=== PATIENT | female | born 1985 | race Caucasian/White ===

== ENCOUNTER 2019-06-08 18:50 | Emergency (ER) | payer SELFPAY ==
[~2019-06-08] VITALS: Ht 162.6 cm; Wt 54.5 kg
--- NOTE | 2019-06-08 19:26 | ED EENT ---
History of Present Illness General Chief Complaint: Dental Problems/Pain Stated Complaint: DENTAL PAIN Nursing Triage Note: Pt amb to triage with c/o dental pain. Pt reports discomfort and swelling to Lt bottom molar and tissue surrounding. Pt reports discomfort began approx x2 days ago. Deneis fever or chills. Source: patient, family Exam Limitations: no limitations History of Present Illness Date Seen by Provider: Jun 08, 2019 Time Seen by Provider: 19:26 Initial Comments 34-year-old female patient presents with complaints of left-sided dental pain 2 days. Patient reports taking Tylenol at home without improvement in symptoms. Pain is worse with palpation and chewing. Patient reports a long history of dental cavities. Patient requests not to be given narcotics if given anything for pain due to a history of drug abuse. Timing/Duration: gradual Location: dental Prearrival Treatment: over the counter meds Modifying Factors: Worse With Other (worse with palpation and chewing) Allergies and Home Medications Allergies Coded Allergies: amoxicillin (Verified Allergy, Severe, blisters in throat, 06/08/19) sulfamethoxazole (Verified Allergy, Severe, blisters in throat, 06/08/19) trimethoprim (Verified Allergy, Severe, blisters in throat, 06/08/19) Home Medications Cephalexin 500 Mg Tablet, 500 MG PO TID Prescribed by: MADDIE NICHOLSON on 06/08/191944 Ibuprofen 800 Mg Tablet, 800 MG PO Q8H PRN for PAIN-MILD Prescribed by: MADDIE NICHOLSON on 06/08/191944 Patient Home Medication List Home Medication List Reviewed: Yes Review of Systems Review of Systems Constitutional: No chills, No dizziness, No fever, No malaise Eyes: No Symptoms Reported Ears: No Symptoms Reported Nose: no symptoms reported Mouth: see HPI, pain, swelling (swelling to the left lower gums) Throat: denies pain, denies swelling, denies hoarse, denies aphonia, denies muffled, denies painful swallowing, denies difficulty with fluids Respiratory: no symptoms reported Cardiovascular: no symptoms reported Gastrointestinal: no symptoms reported Skin: no symptoms reported Neurological: No Symptoms Reported All Other Systems Reviewed Negative Unless Noted: Yes (Negative excepted noted.) Past Gozzjav-Fjpihl-Vajaoo Hx Past Med/Social Hx: Reviewed Nursing Past Med/Soc Hx Patient Social History Alcohol Use: Rarely Uses Number of Drinks Today: 0 Recreational Drug Use: Yes Smoking Status: Current Everyday Smoker Type Used: Cigarettes 2nd Hand Smoke Exposure: Yes Recent Foreign Travel: No Contact w/Someone Who Travel: No Recent Infectious Disease Expo: No Recent Hopitalizations: No Seasonal Allergies Seasonal Allergies: No Past Medical History Surgeries: Yes Orthopedic Respiratory: No Cardiac: No Neurological: No Genitourinary: No Gastrointestinal: No Musculoskeletal: Yes Scoliosis Endocrine: No HEENT: No Cancer: No Integumentary: No Family Medical History Reviewed Nursing Family Hx No Pertinent Family Hx Physical Exam Vital Signs Vital Signs - First Documented 06/08/19 19:03 Temp 36.6 Pulse 73 Resp 16 B/P (MAP) 116/82 (93) Pulse Ox 100 O2 Delivery Room Air Height, Weight, BMI Height: '" Weight: lbs. oz. kg; 20.00 BMI Method: General Appearance: WD/WN, no apparent distress Eyes: bilateral eye normal inspection, bilateral eye PERRL, bilateral eye EOMI Ears: bilateral ear auricle normal, bilateral ear canal normal, bilateral ear TM normal Nose: normal inspection Mouth/Throat: pharynx normal, dental tenderness (left lower dental tenderness with mild swelling to the gums. Multiple dental caries noted throughout the mouth.); No excessive drooling; mandibular swelling (very mild left mandibular swelling without erythema. Tenderness noted.); No maxillary swelling, No uvula swelling, No voice changes Neck: full range of motion, supple, lymphadenopathy (R), lymphadenopathy (L) Cardiovascular: regular rate, rhythm, no murmur Respiratory: lungs clear, normal breath sounds, no respiratory distress, no accessory muscle use Neurologic/Psychiatric: alert, normal mood/affect, oriented x 3 Skin: normal color, warm/dry Progress/Results/Core Measures Results/Orders My Orders Orders - MADDIE NICHOLSON Ketorolac Injection (Toradol Injection) (06/08/19 19:33) Clindamycin Capsule (Cleocin Capsule) (06/08/19 19:45) Medications Given in ED Current Medications Medications Dose Ordered Sig/Torin Route Start Time Stop Time Status Last Admin Dose Admin Clindamycin HCl 450 mg ONCE ONCE PO 06/08/19 19:45 06/08/19 19:46 DC 06/08/19 19:45 450 MG Vital Signs/I&O 06/08/19 19:03 Temp 36.6 Pulse 73 Resp 16 B/P (MAP) 116/82 (93) Pulse Ox 100 O2 Delivery Room Air 2 Blood Pressure Mean: 93 Departure Communication (Admissions) Patient seen and evaluated. Patient given 450 mg of Cleocin by mouth 1 dose and Toradol 60 mg IM 1 dose. Plan for discharge to home. [place] [facility]. Impression Primary Impression: Dental abscess Disposition: HOME, SELF-CARE Condition: Improved Departure-Patient Inst. Decision time for Depature: 19:43 Referrals: NO,LOCAL PHYSICIAN (PCP/Family) Primary Care Physician Patient Instructions: Dental Pain (DC), Tooth Abscess (DC) Add. Discharge Instructions: All discharge instructions reviewed with patient and/or family. Voiced understanding. Medications as instructed. Tylenol just strength [id number] as directed for pain. Soft diet. Stay well hydrated. Follow[place] [facility] an outpatient for a recheck and further management. Contact their office Tuesday morning for appointment time. Return to the emergency department for worsened symptoms or any other concerns. Scripts Ibuprofen (Ibuprofen) 800 Mg Tablet 800 MG PO Q8H PRN for PAIN-MILD, #30 TAB 0 Refills Prov: MADDIE NICHOLSON 06/08/19 Cephalexin (Cephalexin) 500 Mg Tablet 500 MG PO TID, #21 TAB 0 Refills Prov: MADDIE NICHOLSON 06/08/19 MADDIE NICHOLSON Jun 08, 2019 19:26
[2019-06-08] MEDS ORDERED: KETOROLAC 60 MG/2 ML VIAL IM STA (19:33)
[2019-06-08] MEDS ORDERED: IBUP-1780 PO (19:45)
[2019-06-08] MEDS ORDERED: CEPH500T PO (19:45)
[2019-06-08] MEDS ORDERED: CLINDAMYCIN 150 MG (CLEOCIN) CAP PO ONE (19:45)
[2019-06-08 19:50] VITALS: BP 116/82
== END 2019-06-08 19:50 | disposition home or self-care (01) ==
LOC: ER 18:52
DX: K04.7 Periapical abscess without sinus (principal); F17.210 Nicotine dependence, cigarettes, uncomplicated; Z88.0 Allergy status to penicillin; Z88.2 Allergy status to sulfonamides; Z88.1 Allergy status to other antibiotic agents
CPT/HCPCS: 96372; 99282

== ENCOUNTER 2020-03-06 11:32 | Emergency (ER) | payer SELFPAY ==
[~2020-03-06] VITALS: Ht 162.5 cm; Wt 58.0 kg
[~2020-03-06 11:32] MED LIST: CEPH500T PO; IBUP-1780 PO
[2020-03-06 11:38] VITALS: BP 127/93
[2020-03-06] MEDS ORDERED: CEPH500T PO (11:50)
[2020-03-06] MEDS ORDERED: NAPR-1071 PO (11:50)
--- NOTE | 2020-03-06 11:50 | ED EENT ---
History of Present Illness General Chief Complaint: Dental Problems/Pain Stated Complaint: TOOTHACHE Source: patient Exam Limitations: no limitations History of Present Illness Date Seen by Provider: Mar 06, 2020 Time Seen by Provider: 11:47 Initial Comments To ER with a left upper toothache. She states she has several teeth that are bad. She would like to get her teeth all pulled once. Currently in school to get her GED and doesn't have time to get her teeth or removed. She plans on seeing a dentist in a few weeks to schedule this. Doesn't want pain medicine, only wants an antibiotic. Timing/Duration: abrupt Severity: moderate Location: dental Associated Symptoms: denies symptoms Allergies and Home Medications Allergies Coded Allergies: amoxicillin (Verified Allergy, Severe, blisters in throat, 06/08/19) sulfamethoxazole (Verified Allergy, Severe, blisters in throat, 06/08/19) trimethoprim (Verified Allergy, Severe, blisters in throat, 06/08/19) Home Medications Cephalexin 500 Mg Tablet, 500 MG PO TID Prescribed by: MADDIE NICHOLSON on 06/08/191944 Ibuprofen 800 Mg Tablet, 800 MG PO Q8H PRN for PAIN-MILD Prescribed by: MADDIE NICHOLSON on 06/08/191944 Patient Home Medication List Home Medication List Reviewed: Yes Review of Systems Review of Systems Constitutional: see HPI Eyes: No Symptoms Reported Ears: No Symptoms Reported Nose: no symptoms reported Mouth: no symptoms reported Throat: no symptoms reported Respiratory: no symptoms reported Cardiovascular: no symptoms reported Musculoskeletal: no symptoms reported Skin: no symptoms reported Neurological: No Symptoms Reported Hematologic/Lymphatic: No Symptoms Reported Immunological/Allergic: no symptoms reported Past Voeqapz-Mqlzsh-Glblaa Hx Patient Social History Alcohol Use: Rarely Uses Recreational Drug Use: No Smoking Status: Current Everyday Smoker Type Used: Cigarettes 2nd Hand Smoke Exposure: Yes Recent Foreign Travel: No Contact w/Someone Who Travel: No Recent Hopitalizations: No Physical Abuse: No Sexual Abuse: No Mistreated: No Fear: No Seasonal Allergies Seasonal Allergies: No Past Medical History Surgeries: Yes Orthopedic Respiratory: No Cardiac: No Neurological: No Genitourinary: No Gastrointestinal: No Musculoskeletal: Yes Scoliosis Endocrine: No HEENT: No Cancer: No Psychosocial: No Integumentary: No Blood Disorders: No Adverse Reaction/Blood Tranf: No Family Medical History No Pertinent Family Hx Physical Exam Height, Weight, BMI Height: '" Weight: lbs. oz. kg; 20.00 BMI Method: General Appearance: WD/WN, no apparent distress Eyes: bilateral eye normal inspection, bilateral eye PERRL, bilateral eye EOMI Ears: bilateral ear auricle normal, bilateral ear canal normal, bilateral ear TM normal Mouth/Throat: other (multiple carious and eroded teeth. Gingivitis noted.) Neck: non-tender, full range of motion Respiratory: no respiratory distress, no accessory muscle use Neurologic/Psychiatric: alert, normal mood/affect, oriented x 3 Skin: normal color, warm/dry Departure Impression Primary Impression: Dental caries extending into dentine Disposition: HOME, SELF-CARE Condition: Stable Departure-Patient Inst. Decision time for Depature: 11:49 Referrals: NO,LOCAL PHYSICIAN (PCP/Family) Primary Care Physician Patient Instructions: Dental Pain (DC) Scripts Naproxen (Naprosyn) 500 Mg Tablet 500 MG PO BID PRN for PAIN-SEVERE (8-10), #30 TAB 0 Refills Prov: CARIE RIDDLE APRN 03/06/20 Cephalexin (Cephalexin) 500 Mg Tablet 500 MG PO TID, #21 TAB 0 Refills Prov: CARIE RIDDLE APRN 03/06/20 CARIE RIDDLE APRN Mar 06, 2020 11:50
== END 2020-03-06 11:54 | disposition home or self-care (01) ==
LOC: EDUNIT# 11:32 → ER 11:34
DX: K02.9 Dental caries, unspecified (principal); F17.210 Nicotine dependence, cigarettes, uncomplicated; Z88.1 Allergy status to other antibiotic agents; Z88.2 Allergy status to sulfonamides
CPT/HCPCS: 99282